=== PATIENT | male | born 1985 | race Caucasian/White ===

== ENCOUNTER 2021-08-30 23:43 | Emergency (ER) | payer SELFPAY ==
[~2021-08-30] VITALS: Ht 177.8 cm; Wt 85.4 kg
[2021-08-31] MEDS ORDERED: DOXY100T PO (00:47)
--- NOTE | 2021-08-31 00:47 | PHYS DOC ---
Past Medical History Past Surgical History: No Surgical History General Adult EDM: Chief Complaint: MULTIPLE COMPLAINTS HPI: HPI: Patient is a 35-year-old male with history of drug use presenting today complaining of multiple sores throughout his body, for a couple days. He believes they came from [employer] vaccine which he received 08/21/2021. He states he uses methamphetamines IV. He also states he has STDs. He states he was supposed to to be on antibiotics but he does not take the antibiotics because he did not go fill the prescription. Denies any fever, nausea, vomiting. Appears very high on meth fidgeting and picking on his skin Review of Systems: Review of Systems: Constitutional: Denies fever or chills. [] GI: Denies abdominal pain, nausea, vomiting, bloody stools or diarrhea. [] : Reports STD concern denies dysuria. [] Musculoskeletal: Denies back pain or joint pain. [] Integument: Reports sores throughout his body Neurologic: Denies headache, focal weakness or sensory changes. [] Psychiatric: Denies depression or anxiety. [] Heart Score: C/O Chest Pain: N/A Risk Factors: Risk Factors: DM, Current or recent (<one month) smoker, HTN, HLP, family history of CAD, obesity. Risk Scores: Score 0 - 3: 2.5% MACE over next 6 weeks - Discharge Home Score 4 - 6: 20.3% MACE over next 6 weeks - Admit for Clinical Observation Score 7 - 10: 72.7% MACE over next 6 weeks - Early Invasive Strategies Current Medications: Current Medications Medications (Trade) Dose Ordered Sig/Hanane Start Time Stop Time Status Last Admin Dose Admin Ceftriaxone Sodium (Rocephin Im) 500 mg 1X ONCE 08/31/21 01:00 08/31/21 01:01 Doxycycline Hyclate (Vibra-Tab) 100 mg 1X ONCE 08/31/21 01:00 08/31/21 01:01 Metronidazole (Flagyl) 500 mg 1X ONCE 08/31/21 01:00 08/31/21 01:01 Allergies: Allergies: Allergies Coded Allergies Type Severity Reaction Last Updated Verified No Known Drug Allergies 08/31/21 No Physical Exam: PE: Constitutional: Well developed, well nourished, no acute distress, non-toxic appearance. [] Abdomen: Bowel sounds normal, soft, no tenderness, no masses, no pulsatile masses. [] Skin: Patient picks his skin, he has a couple erythematous open sores on the face, and lower extremities. None of them is draining. Back: No tenderness, no CVA tenderness. [] Extremities: No tenderness, no cyanosis, no clubbing, ROM intact, no edema. [] Neurologic: Alert and oriented X 3, normal motor function, normal sensory function, no focal deficits noted. [] Psychologic: Patient is high on meth, picking on his skin, fidgeting Current Patient Data: Vital Signs: Vital Signs Date Time Temp Pulse Resp B/P (MAP) Pulse Ox O2 Delivery O2 Flow Rate FiO2 08/31/21 00:15 98.3 91 18 148/91 (110) 96 Room Air 98.3 EKG: EKG: [] Radiology/Procedures: Radiology/Procedures: [] Course & Med Decision Making: Course & Med Decision Making Pertinent Labs and Imaging studies reviewed. (See chart for details) This a 35-year-old male patient high on methamphetamines presenting today complaining of sores on his skin, some of them appear infected but none is draining. Is also complaining of STD, he was diagnosed recently but did not take his antibiotics. He states he recently came from [facility] and his tetanus is up-to-date. He was given Flagyl, Rocephin and doxycycline in the ED and discharged with doxycycline PO. Informed patient to consider getting help for IV drug use. Provided resources. Meng Disclaimer: Meng Disclaimer: This electronic medical record was generated, in whole or in part, using a voice recognition dictation system. Departure Departure Impression: Primary Impression: Concern about STD in male without diagnosis Additional Impressions: Cellulitis Qualified Codes: L03.119 - Cellulitis of unspecified part of limb Methamphetamine use Disposition: HOME / SELF CARE / HOMELESS Condition: STABLE Referrals: NO PCP (PCP) Patient Instructions: Cellulitis, [id number], Sexually Transmitted Disease Additional Instructions: You were evaluated in the emergency room for infection on your skin as well as sexually transmitted diseases. Please take the antibiotics was sent to your pharmacy ensure you complete them. Follow-up with your own doctor in 1 week. Please follow-up with [facility] to get assistance for drug use Scripts Doxycycline Hyclate (DOXYCYCLINE HYCLATE) 100 Mg Tablet 1 TAB PO BID, #14 TAB Prov: WILBUR CASTRO APRN 08/31/21 WILBUR CASTRO APRN Aug 31, 2021 00:47
[2021-08-31] MEDS: cefTRIAXone IM 500 MG VIAL. IM ONE ×2 (01:00→01:41)
[2021-08-31] MEDS ORDERED: DOXYCYCLINE HYCLATE 100 MG TABLET PO ONE (01:00)
[2021-08-31] MEDS ORDERED: metroNIDAZOLE 500 MG TABLET PO ONE (01:00)
[2021-08-31] MEDS ORDERED: LIDOCAINE 2% Multi-Dose 20 ML VIAL. ONE (01:34)
[2021-08-31] MEDS ORDERED: LIDOCAINE 1% Multi-Dose 20 ML VIAL. ONE (01:34)
[2021-08-31 01:38] LABS: BILIRUBIN,URINE NEGATIVE (NEG); CLARITY,URINE CLOUDY; COLOR,URINE YELLOW; NITRITE,URINE NEGATIVE (NEG); PROTEIN,URINE NEGATIVE (NEG-TRACE)
[2021-08-31 01:39] VITALS: BP 147/87
[2021-08-31 01:45] LABS: BARBITURATES NEG (NEG); BENZODIAZEPINES NEG (NEG); CANNABINOIDS NEG (NEG); COCAINE NEG (NEG); METHADONE NEG (NEG); OPIATES NEG (NEG); PHENCYCLIDINE POS (NEG)
[2021-08-31 01:48] LABS: AMPHETAMINE/METHAMPHETAMINE POS (NEG)
[2021-08-31 01:52] LABS: BACTERIA,URINE 0 /HPF (0-FEW); RBC,URINE 0 /HPF (0-2); WBC,URINE 0 /HPF (0-4)
== END 2021-08-31 02:00 | disposition home or self-care (01) ==
LOC: ER 23:43
DX: L03.119 Cellulitis of unspecified part of limb (principal); F15.90 Other stimulant use, unspecified, uncomplicated; Z20.2 Contact with and (suspected) exposure to infections with a predominantly sexual mode of transmission
CPT/HCPCS: 80307; 81001; 87491; 87591; 99283; J0696